=== PATIENT | male | born 1955 | race Caucasian/White ===

== ENCOUNTER 2016-10-20 23:03 | Inpatient (IN) | payer BC ==
[~2016-10-20] VITALS: Ht 182.9 cm; Wt 82.5 kg
[2016-10-21 00:01] LABS: HEMATOCRIT 41.5 % (38.0-50.0); MCH 29.6 PG (29.0-34.0); MCHC 36.1 G/DL (30.0-36.0); MCV 81.9 FL (86-99); MEAN PLAT.VOLUME 8.5 uM^3 (9.0-12.4); PLATELET COUNT 240 K/uL (156-360); RBC DIS.WIDTH-CV 12.2 % (11.8-14.6); RBC DIS.WIDTH-SD 36.4 % (39-53); RED BLOOD COUNT 5.07 M/uL (4.00-5.50); WHITE BLOOD COUNT 8.2 K/uL (4.1-10.2)
[2016-10-21 00:09] LABS: CHLORIDE 88 mEq/L (99-109); POTASSIUM 4.2 mEq/L (3.7-5.4); SODIUM 122 mEq/L (136-147)
[2016-10-21 00:10] LABS: GLUCOSE 100 mg/dL (70-99); PROTHROMBIN TIME 9.8 (9.2-11.2); PTT 31.7 (25-32)
[2016-10-21 00:12] LABS: ANION GAP 10 MEQ/L (2-14)
[2016-10-21 00:14] LABS: GFR ESTIMATE (CALCULATED) > 59 mL/min/
[2016-10-21 00:15] LABS: UREA NITROGEN (BUN) 8 mg/dL (9-23)
[2016-10-21 00:21] LABS: TROP-I INTERPRETATION NEGATIVE; TROPONIN-I < 0.01 ng/mL (0.0-0.30)
[2016-10-21] MEDS ORDERED: TOPROL XL50 MG PO (00:28)
[2016-10-21] MEDS ORDERED: LIPITOR40 MG PO (00:29)
[2016-10-21] MEDS ORDERED: LEXAPRO5 MG PO (00:29)
[2016-10-21] MEDS ORDERED: BUPRENORPHIN-N1 EACH SL (00:31)
[2016-10-21] MEDS ORDERED: SYMBICORT60 INHALAT IH (00:31)
[2016-10-21] MEDS ORDERED: BENADRYL25 MG PO (00:32)
[2016-10-21] MEDS ORDERED: VITAMIN D-32000 UNI2 PO (01:44)
[2016-10-21] MEDS ORDERED: LO-DOSE ASPIRIN81 M2 PO (01:44)
[2016-10-21] MEDS ORDERED: DAILY VALUE1 EACH PO (01:45)
[2016-10-21 02:59] LABS: TOTAL BILIRUBIN 0.6 mg/dL (0.0-1.0)
[2016-10-21 03:00] LABS: ALKALINE PHOSPHATASE 95 IU/L (3-129)
[2016-10-21 03:03] LABS: DIRECT BILIRUBIN 0.3 mg/dL (0.0-0.3)
[2016-10-21 03:04] LABS: URIC ACID 3.1 mg/dL (3.1-9.2)
[2016-10-21 04:04] LABS: HDL CHOLESTEROL 58 MG/DL (Desirable>=40); LDL CHOLESTEROL 63 mg/dL (Desirable<100); NON-HDL CHOLESTEROL 74 mg/dL (Desirable<160); TOTAL CHOLESTEROL 132 mg/dL (Desirable<200); TRIGLYCERIDES 53 MG/DL (Normal: <150)
[2016-10-21 05:16] VITALS: BP 173/84
[2016-10-21 05:22] LABS: ADD MIUA? YES; BILIRUBIN NEGATIVE; BLOOD SMALL; COLOR STRAW ((YELLOW)); GLUCOSE (STRIP) NEGATIVE; KETONES NEGATIVE; LEUKOCYTES NEGATIVE; NITRITE NEGATIVE; PROTEIN (STRIP) NEGATIVE; SPECIFIC GRAVITY 1.017 (1.000-1.030); UROBILINOGEN 0.2 MG/DL (0.2-1.0)
[2016-10-21 06:23] LABS: BACTERIA NONE SEEN /HPF; CASTS NONE SEEN /LPF; CRYSTALS NONE SEEN; EPITHELIAL CELLS NONE SEEN /HPF; MUCUS NONE SEEN /LPF; RED BLOOD CELLS RARE /HPF (0-5); UCUL ADDED? NO; WHITE BLOOD CELLS RARE /HPF (0-5)
[2016-10-21 07:09] LABS: Estimated Average Glucose 114 mg/dL (70-123); HEMOGLOBIN A1c (GLYCOHEMOGLOB) 5.6 % HGB (Below 5.7)
[2016-10-21 07:31] VITALS: BP 162/85
[2016-10-21 09:27] LABS: ANION GAP 7 MEQ/L (2-14); CHLORIDE 87 MEQ/L (99-109); GFR ESTIMATE (CALCULATED) > 59 mL/min/; GLUCOSE 109 mg/dL (70-99); POTASSIUM 4.6 MEQ/L (3.7-5.4); SAMPLE HEMOLYSIS CHECK 0; SAMPLE ICTERIC CHECK 0; SAMPLE LIPEMIA CHECK 0; UREA NITROGEN (BUN) 6 mg/dL (9-23)
[2016-10-21 09:28] LABS: SODIUM 118 MEQ/L (136-147)
[2016-10-21 11:32] VITALS: BP 158/84
[2016-10-21] MEDS ORDERED: LEVO-T50 MCG PO (13:43)
[2016-10-21 15:27] VITALS: BP 162/82
[2016-10-21 16:23] LABS: ANION GAP 8 MEQ/L (2-14); CHLORIDE 85 MEQ/L (99-109); GFR ESTIMATE (CALCULATED) > 59 mL/min/; GLUCOSE 118 mg/dL (70-99); SAMPLE HEMOLYSIS CHECK 0; SAMPLE ICTERIC CHECK 0; SAMPLE LIPEMIA CHECK 0; UREA NITROGEN (BUN) 5 mg/dL (9-23)
[2016-10-21 17:04] LABS: SODIUM 117 MEQ/L (136-147)
[2016-10-21 19:47] VITALS: BP 137/80
[2016-10-21 23:47] VITALS: BP 138/77
[2016-10-21 23:48] LABS: CHLORIDE 87 mEq/L (99-109); POTASSIUM 3.7 mEq/L (3.7-5.4)
[2016-10-21 23:50] LABS: GLUCOSE 102 mg/dL (70-99)
[2016-10-21 23:51] LABS: SODIUM 119 mEq/L (136-147)
[2016-10-21 23:52] LABS: ANION GAP 10 MEQ/L (2-14)
[2016-10-21 23:54] LABS: GFR ESTIMATE (CALCULATED) > 59 mL/min/
[2016-10-21 23:55] LABS: UREA NITROGEN (BUN) 6 mg/dL (9-23)
[2016-10-22 03:51] VITALS: BP 127/74
[2016-10-22 07:29] VITALS: BP 143/78
[2016-10-22 08:44] LABS: BASOPHIL COUNT 0.1 K/uL (0-0.1); EOSINOPHIL (%) 0.7 % (0-5); EOSINOPHIL COUNT 0.1 K/uL (0-0.3); HEMATOCRIT 40.4 % (38.0-50.0); IMMATURE GRANULOCYTE (%) 0.4 % (0.0-0.7); INSTRUMENT ABS NEUTROPHIL CT 6.5 K/uL; LYMPHOCYTE COUNT 0.9 K/uL (1.0-2.8); MCH 29.7 PG (29.0-34.0); MCHC 35.9 G/DL (30.0-36.0); MCV 82.8 FL (86-99); MEAN PLAT.VOLUME 8.4 uM^3 (9.0-12.4); MONOCYTE (%) 10.4 % (3-12); MONOCYTE COUNT 0.9 K/uL (0-0.8); NEUTROPHIL (%) 77.1 % (45-76); NEUTROPHIL COUNT 6.5 K/uL (1.8-6.4); PLATELET COUNT 224 K/uL (156-360); RBC DIS.WIDTH-CV 12.5 % (11.8-14.6); RED BLOOD COUNT 4.88 M/uL (4.00-5.50); WHITE BLOOD COUNT 8.5 K/uL (4.1-10.2)
[2016-10-22 09:09] LABS: ANION GAP 7 MEQ/L (2-14); CHLORIDE 86 MEQ/L (99-109); GFR ESTIMATE (CALCULATED) > 59 mL/min/; GLUCOSE 103 mg/dL (70-99); POTASSIUM 4.3 MEQ/L (3.7-5.4); SAMPLE HEMOLYSIS CHECK 0; SAMPLE ICTERIC CHECK 0; SAMPLE LIPEMIA CHECK 0; SODIUM 120 MEQ/L (136-147); UREA NITROGEN (BUN) 7 mg/dL (9-23)
[2016-10-22 11:19] VITALS: BP 147/74
[2016-10-22 16:00] VITALS: BP 140/80
[2016-10-22 18:52] LABS: ANION GAP 6 MEQ/L (2-14); CHLORIDE 88 MEQ/L (99-109); GFR ESTIMATE (CALCULATED) > 59 mL/min/; GLUCOSE 108 mg/dL (70-99); POTASSIUM 3.9 MEQ/L (3.7-5.4); SAMPLE HEMOLYSIS CHECK 0; SAMPLE ICTERIC CHECK 0; SAMPLE LIPEMIA CHECK 0; SODIUM 121 MEQ/L (136-147); UREA NITROGEN (BUN) 8 mg/dL (9-23)
[2016-10-22 19:44] VITALS: BP 134/77
[2016-10-22 23:29] VITALS: BP 138/78
[2016-10-23 03:47] VITALS: BP 143/81
[2016-10-23 06:47] LABS: ANION GAP 8 MEQ/L (2-14); CHLORIDE 89 MEQ/L (99-109); GFR ESTIMATE (CALCULATED) > 59 mL/min/; GLUCOSE 95 mg/dL (70-99); SAMPLE HEMOLYSIS CHECK 0; SAMPLE ICTERIC CHECK 0; SAMPLE LIPEMIA CHECK 0; SODIUM 123 MEQ/L (136-147); UREA NITROGEN (BUN) 6 mg/dL (9-23)
[2016-10-23 06:51] LABS: POTASSIUM 4.7 MEQ/L (3.7-5.4)
[2016-10-23 07:49] VITALS: BP 160/86
[2016-10-23 11:01] VITALS: BP 138/88
[2016-10-23 15:11] LABS: ANION GAP 7 MEQ/L (2-14); CHLORIDE 91 MEQ/L (99-109); GFR ESTIMATE (CALCULATED) > 59 mL/min/; GLUCOSE 114 mg/dL (70-99); SAMPLE HEMOLYSIS CHECK 0; SAMPLE ICTERIC CHECK 0; SAMPLE LIPEMIA CHECK 0; SODIUM 123 MEQ/L (136-147); UREA NITROGEN (BUN) 8 mg/dL (9-23)
[2016-10-23 16:12] VITALS: BP 130/65
[2016-10-23 19:49] VITALS: BP 113/59
[2016-10-24] VITALS (7 sets, daily range): BP systolic 112–156; BP diastolic 69–85
[2016-10-24 06:50] LABS: BASOPHIL COUNT 0.1 K/uL (0-0.1); EOSINOPHIL (%) 0.8 % (0-5); EOSINOPHIL COUNT 0.1 K/uL (0-0.3); HEMATOCRIT 40.6 % (38.0-50.0); IMMATURE GRANULOCYTE (%) 0.6 % (0.0-0.7); IMMATURE GRANULOCYTE COUNT 0.1 K/uL; INSTRUMENT ABS NEUTROPHIL CT 5.2 K/uL; LYMPHOCYTE COUNT 1.3 K/uL (1.0-2.8); MCH 29.4 PG (29.0-34.0); MCHC 34.7 G/DL (30.0-36.0); MCV 84.8 FL (86-99); MEAN PLAT.VOLUME 8.5 uM^3 (9.0-12.4); MONOCYTE (%) 13.7 % (3-12); MONOCYTE COUNT 1.1 K/uL (0-0.8); NEUTROPHIL (%) 66.1 % (45-76); NEUTROPHIL COUNT 5.2 K/uL (1.8-6.4); PLATELET COUNT 229 K/uL (156-360); RBC DIS.WIDTH-CV 12.9 % (11.8-14.6); RBC DIS.WIDTH-SD 40.1 % (39-53); RED BLOOD COUNT 4.79 M/uL (4.00-5.50); WHITE BLOOD COUNT 7.8 K/uL (4.1-10.2)
[2016-10-24 07:16] LABS: ANION GAP 8 MEQ/L (2-14); CHLORIDE 99 MEQ/L (99-109); GFR ESTIMATE (CALCULATED) > 59 mL/min/; GLUCOSE 93 mg/dL (70-99); POTASSIUM 4.5 MEQ/L (3.7-5.4); SAMPLE HEMOLYSIS CHECK 0; SAMPLE ICTERIC CHECK 0; SAMPLE LIPEMIA CHECK 0; UREA NITROGEN (BUN) 9 mg/dL (9-23)
[2016-10-24 07:18] LABS: SODIUM 134 MEQ/L (136-147)
[2016-10-24 16:38] LABS: ANION GAP 7 MEQ/L (2-14); CHLORIDE 97 MEQ/L (99-109); GFR ESTIMATE (CALCULATED) > 59 mL/min/; GLUCOSE 111 mg/dL (70-99); SAMPLE HEMOLYSIS CHECK 0; SAMPLE ICTERIC CHECK 0; SAMPLE LIPEMIA CHECK 0; SODIUM 133 MEQ/L (136-147); UREA NITROGEN (BUN) 11 mg/dL (9-23)
[2016-10-24 22:42] LABS: ANION GAP 10 MEQ/L (2-14); CHLORIDE 96 MEQ/L (99-109); GFR ESTIMATE (CALCULATED) > 59 mL/min/; GLUCOSE 124 mg/dL (70-99); POTASSIUM 4.3 MEQ/L (3.7-5.4); SAMPLE HEMOLYSIS CHECK 0; SAMPLE ICTERIC CHECK 0; SAMPLE LIPEMIA CHECK 0; SODIUM 130 MEQ/L (136-147); UREA NITROGEN (BUN) 11 mg/dL (9-23)
[2016-10-25 04:00] VITALS: BP 144/76
[2016-10-25 07:04] LABS: IMMATURE GRANULOCYTE (%) 0.3 % (0.0-0.7); LYMPHOCYTE COUNT 1.4 K/uL (1.0-2.8); MCH 29.6 PG (29.0-34.0); MCHC 34.3 G/DL (30.0-36.0); MCV 86.4 FL (86-99); MEAN PLAT.VOLUME 8.7 uM^3 (9.0-12.4); MONOCYTE (%) 12.3 % (3-12); MONOCYTE COUNT 1.1 K/uL (0-0.8); NEUTROPHIL (%) 68.2 % (45-76); PLATELET COUNT 236 K/uL (156-360); RBC DIS.WIDTH-SD 40.6 % (39-53); RED BLOOD COUNT 4.86 M/uL (4.00-5.50); WHITE BLOOD COUNT 8.6 K/uL (4.1-10.2)
[2016-10-25 07:05] LABS: BASOPHIL COUNT 0.1 K/uL (0-0.1); EOSINOPHIL COUNT 0.2 K/uL (0-0.3); INSTRUMENT ABS NEUTROPHIL CT 5.9 K/uL; NEUTROPHIL COUNT 5.9 K/uL (1.8-6.4)
[2016-10-25 07:25] VITALS: BP 152/82
[2016-10-25 08:35] LABS: POTASSIUM 4.6 mEq/L (3.7-5.4); SODIUM 133 mEq/L (136-147)
[2016-10-25 08:36] LABS: CHLORIDE 99 mEq/L (99-109)
[2016-10-25 08:37] LABS: GLUCOSE 97 mg/dL (70-99)
[2016-10-25 08:39] LABS: ANION GAP 12 MEQ/L (2-14)
[2016-10-25 08:41] LABS: GFR ESTIMATE (CALCULATED) > 59 mL/min/
[2016-10-25 08:42] LABS: UREA NITROGEN (BUN) 8 mg/dL (9-23)
[2016-10-25 08:44] VITALS: BP 136/82
[2016-10-25 10:33] VITALS: BP 131/88
[2016-10-25 11:24] VITALS: BP 140/71
[2016-10-25] MEDS ORDERED: CEFTIN500 MG PO (11:36)
[2016-10-25] MEDS ORDERED: SODIUM CHLORIDE1 G1 PO (11:37)
[2016-10-25] MEDS ORDERED: AMLODIPINE BESYL5 MG PO (11:37)
[2016-10-25] MEDS ORDERED: SPIRIVA RESPIMAT4 GM IH (11:38)
[2016-10-25] MEDS ORDERED: PROAIR RESPICL90 MCG IH (11:39)
[2016-10-25] MEDS ORDERED: LORAZEPAM1 MG PO (11:41)
== END 2016-10-25 14:18 | disposition home or self-care (01) | DRG 643 ==
LOC: EME 23:03 → 5SOUTH 10-21 02:06 → EDOF 10-21 02:06 → 5SOUTH 10-21 04:07
PROVIDERS: Emergency Medicine; Hospitalist; Internal Medicine
DX: E22.2 Syndrome of inappropriate secretion of antidiuretic hormone (principal); J18.9 Pneumonia, unspecified organism; C34.91 Malignant neoplasm of unspecified part of right bronchus or lung; J44.0 Chronic obstructive pulmonary disease with (acute) lower respiratory infection; E86.0 Dehydration; I10 Essential (primary) hypertension; J44.1 Chronic obstructive pulmonary disease with (acute) exacerbation; E03.9 Hypothyroidism, unspecified; Z87.891 Personal history of nicotine dependence; E78.5 Hyperlipidemia, unspecified
CPT/HCPCS: 70450; 70551; 71020; 71260; 80048; 80048 91; 80061; 80076; 81003; 82140; 82436; 82533 91; 83036; 83605; 83930; 83935; 84133; 84300; 84443; 84484; 84550; 85002; 85025; 85027; 85610; 85730; 87040; 93005; 93880; 93970; 94060; 94640; 94640 76; 94726; 94729; 99281; 99285; J0574; J1644; J2405; J2597; J7030; J7070

== ENCOUNTER 2017-10-12 11:04 | Inpatient (IN) | payer BC ==
[~2017-10-12] VITALS: Ht 175.3 cm; Wt 88.7 kg
[~2017-10-12 11:04] MED LIST: AMLODIPINE BESYL5 MG PO; BENADRYL25 MG PO; BUPRENORPHIN-N1 EACH SL; CEFTIN500 MG PO; COMPAZINE10 MG PO; DAILY VALUE1 EACH PO; DIAZEPAM5 MG PO; LEVO-T50 MCG PO; LEVOTHYROXINE125 MCG PO; LEXAPRO5 MG PO; LIPITOR40 MG PO; LO-DOSE ASPIRIN81 M2 PO; LORAZEPAM1 MG PO; MIRTAZAPINE15 MG PO; ONDANSETRON HCL8 MG PO; OXYCODONE HCL10 MG PO; PROAIR RESPICL90 MCG IH; SODIUM CHLORIDE1 G1 PO; SPIRIVA RESPIMAT4 GM IH; SYMBICORT60 INHALAT IH; TOPROL XL50 MG PO; VITAMIN D-32000 UNI2 PO
[2017-10-12 11:46] LABS: BASOPHIL COUNT 0.2 K/uL (0-0.1); EOSINOPHIL (%) 1.2 % (0-5); EOSINOPHIL COUNT 0.1 K/uL (0-0.3); HEMATOCRIT 38.2 % (38.0-50.0); HEMOGLOBIN 12.2 G/DL (12.5-16.6); IMMATURE GRANULOCYTE (%) 0.4 % (0.0-0.7); LYMPHOCYTE (%) 16.4 % (15-42); LYMPHOCYTE COUNT 0.9 K/uL (1.0-2.8); MCHC 31.9 G/DL (30.0-36.0); MONOCYTE (%) 9.3 % (3-12); MONOCYTE COUNT 0.5 K/uL (0-0.8); NEUTROPHIL (%) 69.7 % (45-76); NEUTROPHIL COUNT 3.9 K/uL (1.8-6.4); NRBC (%) 0.5 /100 WBC (0-0); PLATELET COUNT 301 K/uL (156-360); RBC DIS.WIDTH-CV 16.1 % (11.8-14.6); RBC DIS.WIDTH-SD 53.7 % (39-53); WHITE BLOOD COUNT 5.6 K/uL (4.1-10.2)
[2017-10-12 12:00] LABS: ALBUMIN 4.1 g/dL (3.2-4.8); CHLORIDE 101 mEq/L (99-109); SODIUM 138 mEq/L (136-147)
[2017-10-12 12:03] LABS: GLUCOSE 124 mg/dL (70-99); TOTAL PROTEIN 6.7 g/dL (6.4-8.3)
[2017-10-12 12:05] LABS: TOTAL BILIRUBIN 0.4 mg/dL (0.0-1.0)
[2017-10-12 12:06] LABS: ALKALINE PHOSPHATASE 166 IU/L (3-129); CREATININE 0.9 mg/dL (0.6-1.3); GFR ESTIMATE (CALCULATED) > 59 mL/min/ (58.99-99999)
[2017-10-12 12:07] LABS: UREA NITROGEN (BUN) 4 mg/dL (9-23)
[2017-10-12 12:08] LABS: AST (GOT) 44 IU/L (2-34)
[2017-10-12 12:08] LABS: TROP-I INTERPRETATION NEGATIVE; TROPONIN-I < 0.01 ng/mL (0.0-0.30)
[2017-10-12 12:09] LABS: ALT (GPT) 42 IU/L (3-49)
[2017-10-12 13:02] LABS: APPEARANCE CLOUDY ((CLEAR)); BILIRUBIN NEGATIVE; BLOOD SMALL; COLOR AMBER ((YELLOW)); GLUCOSE (STRIP) NEGATIVE; KETONES NEGATIVE; LEUKOCYTES TRACE; NITRITE NEGATIVE; PROTEIN (STRIP) 30; SPECIFIC GRAVITY 1.023 (1.000-1.030)
[2017-10-12 13:45] LABS: UCUL ADDED? YES; WHITE BLOOD CELLS TNTC /HPF (0-5)
[2017-10-12] MEDS ORDERED: FUROSEMIDE20 MG PO (14:31)
[2017-10-12 19:24] VITALS: BP 158/81
[2017-10-13] VITALS (7 sets, daily range): BP systolic 115–150; BP diastolic 71–87
[2017-10-13 06:48] LABS: HEMATOCRIT 35.9 % (38.0-50.0); HEMOGLOBIN 11.5 G/DL (12.5-16.6); MCH 28.4 PG (29.0-34.0); MCV 88.6 FL (86-99); PLATELET COUNT 316 K/uL (156-360); RBC DIS.WIDTH-CV 16.2 % (11.8-14.6); RBC DIS.WIDTH-SD 52.9 % (39-53); RED BLOOD COUNT 4.05 M/uL (4.00-5.50); WHITE BLOOD COUNT 9.2 K/uL (4.1-10.2)
[2017-10-13 07:12] LABS: CHLORIDE 104 MEQ/L (99-109); CREATININE 0.8 MG/DL (0.6-1.3); GFR ESTIMATE (CALCULATED) > 59 mL/min/ (58.99-99999); GLUCOSE 116 mg/dL (70-99); POTASSIUM 3.9 MEQ/L (3.7-5.4); SODIUM 137 MEQ/L (136-147); UREA NITROGEN (BUN) 6 mg/dL (9-23)
[2017-10-14 04:41] VITALS: BP 126/70
[2017-10-14 07:19] VITALS: BP 146/77
[2017-10-14 10:41] LABS: CREATININE 0.8 MG/DL (0.6-1.3); GFR ESTIMATE (CALCULATED) > 59 mL/min/ (58.99-99999)
[2017-10-14 11:25] VITALS: BP 143/77
[2017-10-14 15:30] VITALS: BP 154/81
[2017-10-14 19:23] VITALS: BP 127/75
[2017-10-14 22:50] VITALS: BP 144/85
[2017-10-15 03:29] VITALS: BP 127/73
[2017-10-15 07:35] VITALS: BP 104/57
[2017-10-15 10:01] LABS: C DIFF TOXIN NEGATIVE (NEGATIVE)
[2017-10-15] MEDS ORDERED: FLORASTOR250 MG PO (11:02)
[2017-10-15] MEDS ORDERED: LEVAQUIN750 MG PO (11:02)
[2017-10-15] MEDS ORDERED: LOPERAMIDE2 MG PO (11:02)
[2017-10-15] MEDS ORDERED: LORAZEPAM0.5 MG PO (11:02)
[2017-10-15 12:01] VITALS: BP 112/60
== END 2017-10-15 14:03 | disposition home or self-care (01) | DRG 194 ==
LOC: EME 11:04 → ENRESERV 15:25 → EDOF 15:25 → 5EAST 15:25
PROVIDERS: Emergency Medicine; Internal Medicine; Physician Assistant; Surgery
DX: J18.9 Pneumonia, unspecified organism (principal); R41.0 Disorientation, unspecified; T40.2X5A Adverse effect of other opioids, initial encounter; T42.4X5A Adverse effect of benzodiazepines, initial encounter; R19.7 Diarrhea, unspecified; R47.01 Aphasia; C79.51 Secondary malignant neoplasm of bone; J44.9 Chronic obstructive pulmonary disease, unspecified; R09.02 Hypoxemia; I10 Essential (primary) hypertension; E03.9 Hypothyroidism, unspecified; F41.9 Anxiety disorder, unspecified; F32.9 Major depressive disorder, single episode, unspecified; R21 Rash and other nonspecific skin eruption; G89.29 Other chronic pain; M54.5 Low back pain; Y95 Nosocomial condition; Z85.118 Personal history of other malignant neoplasm of bronchus and lung; Z87.891 Personal history of nicotine dependence; Z79.51 Long term (current) use of inhaled steroids; Z82.3 Family history of stroke
CPT/HCPCS: 70450; 71046; 80048; 80053; 81003; 82140; 82565; 83605; 83930; 84300; 84484; 85025; 85027; 87040; 87070; 87086; 87205; 87449; 87493; 87502; 87641; 93005; 94760; 94799; 99202; 99281; 99284; J0360; J0456; J0696; J1650; J2060; J2543; J3370; J7030; J7050

== ENCOUNTER 2017-11-01 16:49 | Inpatient (IN) | payer BC ==
[~2017-11-01] VITALS: Ht 182.9 cm; Wt 81.8 kg
[~2017-11-01 16:49] MED LIST changes: +FLORASTOR250 MG PO; +FUROSEMIDE20 MG PO; +LEVAQUIN750 MG PO; +LOPERAMIDE2 MG PO; +LORAZEPAM0.5 MG PO
[2017-11-01 17:35] LABS: HEMATOCRIT 37.1 % (38.0-50.0); HEMOGLOBIN 13.1 G/DL (12.5-16.6); MCHC 35.3 G/DL (30.0-36.0); RBC DIS.WIDTH-CV 14.6 % (11.8-14.6); RBC DIS.WIDTH-SD 43.5 % (39-53); RED BLOOD COUNT 4.52 M/uL (4.00-5.50); WHITE BLOOD COUNT 3.2 K/uL (4.1-10.2)
[2017-11-01 17:53] LABS: MCV 82.1 FL (86-99)
[2017-11-01 17:59] LABS: TROP-I INTERPRETATION NEGATIVE; TROPONIN-I < 0.01 ng/mL (0.0-0.30)
[2017-11-01 18:03] LABS: CHLORIDE 88 MEQ/L (99-109); CREATININE 0.7 MG/DL (0.6-1.3); GFR ESTIMATE (CALCULATED) > 59 mL/min/ (58.99-99999); GLUCOSE 169 mg/dL (70-99); POTASSIUM 3.8 MEQ/L (3.7-5.4); UREA NITROGEN (BUN) 6 mg/dL (9-23)
[2017-11-01 18:04] LABS: SODIUM 123 MEQ/L (136-147)
[2017-11-01 18:17] LABS: IMM.PLATELET FRACTION 5.7 (1-7); PLAT.SUFFICIENCY VERY DECREASED
[2017-11-01 18:26] LABS: PLATELET COUNT 31 K/uL (156-360)
[2017-11-01] MEDS ORDERED: FLORASTOR250 MG PO (19:31)
[2017-11-01] MEDS ORDERED: DIAZEPAM5 MG PO (19:34)
[2017-11-01 19:47] LABS: ALBUMIN 4.5 G/DL (3.2-4.8); AST (GOT) 17 IU/L (2-34); DIRECT BILIRUBIN 0.2 mg/dL (0.0-0.3); MAGNESIUM 1.7 mg/dl (1.3-2.7); PHOSPHORUS 3.2 mg/dL (2.5-4.9)
[2017-11-01 19:48] LABS: ALKALINE PHOSPHATASE 161 IU/L (3-129); ALT (GPT) 24 IU/L (3-49); TOTAL PROTEIN 7.2 G/DL (6.4-8.3)
[2017-11-01 20:08] LABS: ABS NEUTROPHIL COUNT 2.5; ANISOCYTOSIS 1+; ATYPICAL LYMPHOCYTE 0.9 %; BAND NEUTROPHILS 4.3 % (0-8.0); BASOPHILS 1.7 %; EOSINOPHIL ABS CT 0; LYMPHOCYTES 15.7 % (15.0-45.0); MONOCYTES 4.4 % (0-9.0); POIKILOCYTOSIS 1+
[2017-11-01 20:52] VITALS: BP 155/60
[2017-11-01 22:34] VITALS: BP 147/76
[2017-11-02 03:41] VITALS: BP 144/82
[2017-11-02 06:52] LABS: HEMATOCRIT 35.6 % (38.0-50.0); HEMOGLOBIN 11.8 G/DL (12.5-16.6); MCH 27.6 PG (29.0-34.0); MCHC 33.1 G/DL (30.0-36.0); MCV 83.4 FL (86-99); RBC DIS.WIDTH-CV 14.8 % (11.8-14.6); RBC DIS.WIDTH-SD 45.3 % (39-53); RED BLOOD COUNT 4.27 M/uL (4.00-5.50); WHITE BLOOD COUNT 3.1 K/uL (4.1-10.2)
[2017-11-02 07:00] LABS: CHLORIDE 95 MEQ/L (99-109); CREATININE 0.7 MG/DL (0.6-1.3); GFR ESTIMATE (CALCULATED) > 59 mL/min/ (58.99-99999); POTASSIUM 4.5 MEQ/L (3.7-5.4); UREA NITROGEN (BUN) 5 mg/dL (9-23)
[2017-11-02 07:10] LABS: GLUCOSE 109 mg/dL (70-99); SODIUM 133 MEQ/L (136-147)
[2017-11-02 07:20] VITALS: BP 122/64
[2017-11-02 07:38] LABS: TROP-I INTERPRETATION NEGATIVE; TROPONIN-I < 0.01 ng/mL (0.0-0.30)
[2017-11-02 07:50] LABS: IMM.PLATELET FRACTION 4.2 (1-7); PLAT.SUFFICIENCY DECREASED; PLATELET COUNT 32 K/uL (156-360)
[2017-11-02 10:42] LABS: APPEARANCE CLEAR ((CLEAR)); BILIRUBIN NEGATIVE; BLOOD MODERATE; COLOR YELLOW ((YELLOW)); GLUCOSE (STRIP) NEGATIVE; KETONES NEGATIVE; LEUKOCYTES NEGATIVE; NITRITE NEGATIVE; PROTEIN (STRIP) NEGATIVE; SPECIFIC GRAVITY 1.011 (1.000-1.030); UROBILINOGEN 0.2 MG/DL (0.2-1.0)
[2017-11-02 10:47] LABS: BACTERIA NONE SEEN /HPF; EPITHELIAL CELLS NONE SEEN /HPF; MUCUS NONE SEEN /LPF; UCUL ADDED? NO; WHITE BLOOD CELLS 0-5 /HPF (0-5)
[2017-11-02 10:54] LABS: THYROTROPIN (TSH) 6.1 MIU/L (0.4-5.5)
[2017-11-02 11:41] VITALS: BP 142/74
[2017-11-02 13:21] LABS: URIC ACID 3.5 mg/dL (3.1-9.2)
[2017-11-02 16:15] VITALS: BP 148/70
[2017-11-03] VITALS: BP 131/69
[2017-11-03 07:12] LABS: HEMATOCRIT 36.4 % (38.0-50.0); HEMOGLOBIN 12.2 G/DL (12.5-16.6); MCH 27.6 PG (29.0-34.0); MCHC 33.5 G/DL (30.0-36.0); MCV 82.4 FL (86-99); RBC DIS.WIDTH-CV 14.8 % (11.8-14.6); RED BLOOD COUNT 4.42 M/uL (4.00-5.50); WHITE BLOOD COUNT 7.9 K/uL (4.1-10.2)
[2017-11-03 07:22] LABS: CHLORIDE 94 MEQ/L (99-109); CREATININE 0.8 MG/DL (0.6-1.3); GFR ESTIMATE (CALCULATED) > 59 mL/min/ (58.99-99999); GLUCOSE 99 mg/dL (70-99); POTASSIUM 3.9 MEQ/L (3.7-5.4); SODIUM 133 MEQ/L (136-147); UREA NITROGEN (BUN) 6 mg/dL (9-23)
[2017-11-03 07:39] LABS: ABS NEUTROPHIL COUNT 5.1; ATYPICAL LYMPHOCYTE 3.5 %; BAND NEUTROPHILS 9.6 % (0-8.0); EOSINOPHIL ABS CT 0.1; EOSINOPHILS 1.7 % (0-5.0); IMM.PLATELET FRACTION 5.7 (1-7); LYMPHOCYTES 21.7 % (15.0-45.0); MICROCYTOSIS 1+; MONOCYTES 8.7 % (0-9.0); PLAT.SUFFICIENCY VERY DECREASED; POIKILOCYTOSIS 1+; SEG.NEUTROPHILS 54.8 % (46.0-76.0)
[2017-11-03 07:42] VITALS: BP 123/62
[2017-11-03 07:50] LABS: PLATELET COUNT 28 K/uL (156-360)
[2017-11-03 10:26] LABS: HEMOGLOBIN A1c (GLYCOHEMOGLOB) 5.4 % (Below 5.7)
[2017-11-03 16:00] VITALS: BP 109/55
[2017-11-04] VITALS: BP 128/82
[2017-11-04 06:43] LABS: CHLORIDE 95 MEQ/L (99-109); CREATININE 0.8 MG/DL (0.6-1.3); GFR ESTIMATE (CALCULATED) > 59 mL/min/ (58.99-99999); GLUCOSE 116 mg/dL (70-99); POTASSIUM 4.3 MEQ/L (3.7-5.4); SODIUM 132 MEQ/L (136-147); UREA NITROGEN (BUN) 9 mg/dL (9-23)
[2017-11-04 07:14] VITALS: BP 116/64
[2017-11-04 16:50] VITALS: BP 157/72
[2017-11-04 23:56] VITALS: BP 111/68
[2017-11-05 06:18] LABS: CHLORIDE 95 MEQ/L (99-109); CREATININE 0.8 MG/DL (0.6-1.3); GFR ESTIMATE (CALCULATED) > 59 mL/min/ (58.99-99999); GLUCOSE 143 mg/dL (70-99); POTASSIUM 4.3 MEQ/L (3.7-5.4); SODIUM 134 MEQ/L (136-147); UREA NITROGEN (BUN) 13 mg/dL (9-23)
[2017-11-05 07:35] VITALS: BP 134/78
[2017-11-05 08:30] LABS: HEMATOCRIT 37.2 % (38.0-50.0); HEMOGLOBIN 12.5 G/DL (12.5-16.6); MCH 28.4 PG (29.0-34.0); MCHC 33.6 G/DL (30.0-36.0); MCV 84.5 FL (86-99); NRBC (%) 0.1 /100 WBC (0-0); RBC DIS.WIDTH-CV 15.4 % (11.8-14.6); RBC DIS.WIDTH-SD 47.4 % (39-53); WHITE BLOOD COUNT 22.2 K/uL (4.1-10.2)
[2017-11-05 08:32] LABS: PLATELET COUNT 76 K/uL (156-360)
[2017-11-05] MEDS ORDERED: SODIUM CHLORIDE1 G1 PO (13:38)
[2017-11-05] MEDS ORDERED: FUROSEMIDE20 MG PO (13:38)
[2017-11-05] MEDS ORDERED: DECADRON2 MG PO (13:42)
[2017-11-05 16:24] VITALS: BP 142/74
== END 2017-11-05 16:26 | disposition home or self-care (01) | DRG 871 ==
LOC: EME 16:49 → EDOF 19:18 → 5EAST 19:18 → ENRESERV 19:25 → 5EAST 20:42
PROVIDERS: Hospitalist; Internal Medicine; Internal Medicine Nephrology; Nurse Practitioner Adult Health; Physician Assistant Medical
DX: A41.9 Sepsis, unspecified organism (principal); J18.9 Pneumonia, unspecified organism; J96.01 Acute respiratory failure with hypoxia; E22.2 Syndrome of inappropriate secretion of antidiuretic hormone; C79.31 Secondary malignant neoplasm of brain; D61.810 Antineoplastic chemotherapy induced pancytopenia; J44.1 Chronic obstructive pulmonary disease with (acute) exacerbation; J44.0 Chronic obstructive pulmonary disease with (acute) lower respiratory infection; C34.91 Malignant neoplasm of unspecified part of right bronchus or lung; J98.11 Atelectasis; I11.9 Hypertensive heart disease without heart failure; T45.1X5A Adverse effect of antineoplastic and immunosuppressive drugs, initial encounter; C78.7 Secondary malignant neoplasm of liver and intrahepatic bile duct; C79.51 Secondary malignant neoplasm of bone; F41.9 Anxiety disorder, unspecified; F32.9 Major depressive disorder, single episode, unspecified; E03.9 Hypothyroidism, unspecified; G89.29 Other chronic pain; D69.59 Other secondary thrombocytopenia; R73.9 Hyperglycemia, unspecified; R27.0 Ataxia, unspecified; Z79.51 Long term (current) use of inhaled steroids; Z72.0 Tobacco use; Z87.01 Personal history of pneumonia (recurrent); Z85.118 Personal history of other malignant neoplasm of bronchus and lung; Z82.3 Family history of stroke
CPT/HCPCS: 70553; 71046; 71275; 77307; 77331; 77334; 77412; 77417; 80048; 80076; 81003; 82948; 83036; 83615; 83735; 83935; 84100; 84145 90; 84300; 84439; 84443; 84481; 84484; 84550; 85025; 85027; 87040; 93005; 94010; 94640; 94640 76; 94760; 94799; 97530 GO; 99202; 99281; 99285; J0692; J1100; J1815; J1956; J2405; J7030

== ENCOUNTER 2017-11-18 13:13 | Inpatient (IN) | payer BC ==
[~2017-11-18] VITALS: Ht 182.9 cm; Wt 80.8 kg
[~2017-11-18 13:13] MED LIST changes: +DECADRON2 MG PO
[2017-11-18 14:59] LABS: HEMATOCRIT 46.8 % (38.0-50.0); HEMOGLOBIN 15.6 G/DL (12.5-16.6); MCH 29.1 PG (29.0-34.0); MCHC 33.3 G/DL (30.0-36.0); MCV 87.3 FL (86-99); PLATELET COUNT 265 K/uL (156-360); RBC DIS.WIDTH-CV 17.1 % (11.8-14.6); RBC DIS.WIDTH-SD 54.2 % (39-53); RED BLOOD COUNT 5.36 M/uL (4.00-5.50)
[2017-11-18 15:04] LABS: CHLORIDE 100 mEq/L (99-109); POTASSIUM 4.3 mEq/L (3.7-5.4); SODIUM 140 mEq/L (136-147)
[2017-11-18 15:06] LABS: GLUCOSE 116 mg/dL (70-99)
[2017-11-18 15:10] LABS: CREATININE 0.8 mg/dL (0.6-1.3); GFR ESTIMATE (CALCULATED) > 59 mL/min/ (58.99-99999)
[2017-11-18 15:11] LABS: UREA NITROGEN (BUN) 9 mg/dL (9-23)
[2017-11-18 15:17] LABS: TROP-I INTERPRETATION NEGATIVE; TROPONIN-I 0.01 ng/mL (0.0-0.30)
[2017-11-18 15:58] LABS: APPEARANCE CLEAR ((CLEAR)); BILIRUBIN NEGATIVE; BLOOD SMALL; COLOR YELLOW ((YELLOW)); GLUCOSE (STRIP) NEGATIVE; KETONES NEGATIVE; LEUKOCYTES NEGATIVE; NITRITE NEGATIVE; PROTEIN (STRIP) 30; SPECIFIC GRAVITY 1.021 (1.000-1.030); UROBILINOGEN 0.2 MG/DL (0.2-1.0)
[2017-11-18 15:59] LABS: BACTERIA NONE SEEN /HPF; EPITHELIAL CELLS NONE SEEN /HPF; MUCUS TRACE /LPF; RED BLOOD CELLS 0-5 /HPF (0-5); WHITE BLOOD CELLS 0-5 /HPF (0-5)
[2017-11-18] MEDS ORDERED: FUROSEMIDE20 MG PO (16:18)
[2017-11-18 19:40] VITALS: BP 144/92
[2017-11-18 21:00] VITALS: BP 144/92
[2017-11-18 23:15] VITALS: BP 166/87
[2017-11-19 03:36] VITALS: BP 142/92
[2017-11-19 06:01] LABS: HEMATOCRIT 44.6 % (38.0-50.0); HEMOGLOBIN 14.2 G/DL (12.5-16.6); MCHC 31.8 G/DL (30.0-36.0); MCV 87.8 FL (86-99); PLATELET COUNT 225 K/uL (156-360); RBC DIS.WIDTH-CV 17.2 % (11.8-14.6); RED BLOOD COUNT 5.08 M/uL (4.00-5.50)
[2017-11-19 06:26] LABS: ALBUMIN 3.8 G/DL (3.2-4.8); ALKALINE PHOSPHATASE 86 IU/L (3-129); ALT (GPT) 36 IU/L (3-49); AST (GOT) 24 IU/L (2-34); CHLORIDE 103 MEQ/L (99-109); CREATININE 0.7 MG/DL (0.6-1.3); CREATININE 0.8 MG/DL (0.6-1.3); GFR ESTIMATE (CALCULATED) > 59 mL/min/ (58.99-99999); GLUCOSE 107 mg/dL (70-99); POTASSIUM 4.1 MEQ/L (3.7-5.4); POTASSIUM 4.2 MEQ/L (3.7-5.4); SODIUM 139 MEQ/L (136-147); TOTAL BILIRUBIN 0.7 MG/DL (0.0-1.0); TOTAL PROTEIN 6.4 G/DL (6.4-8.3); UREA NITROGEN (BUN) 8 mg/dL (9-23)
[2017-11-19 07:36] VITALS: BP 149/98
[2017-11-19 11:42] VITALS: BP 137/81
[2017-11-19 15:28] VITALS: BP 128/86
[2017-11-19 20:24] VITALS: BP 157/87
[2017-11-19 23:57] VITALS: BP 167/93
[2017-11-20 04:24] VITALS: BP 131/88
[2017-11-20 06:08] LABS: HEMATOCRIT 42.3 % (38.0-50.0); HEMOGLOBIN 13.6 G/DL (12.5-16.6); MCH 27.9 PG (29.0-34.0); MCHC 32.2 G/DL (30.0-36.0); MCV 86.7 FL (86-99); PLATELET COUNT 202 K/uL (156-360); RBC DIS.WIDTH-CV 16.8 % (11.8-14.6); RBC DIS.WIDTH-SD 53.6 % (39-53); RED BLOOD COUNT 4.88 M/uL (4.00-5.50); WHITE BLOOD COUNT 12.1 K/uL (4.1-10.2)
[2017-11-20 06:32] LABS: CHLORIDE 101 MEQ/L (99-109); CREATININE 0.7 MG/DL (0.6-1.3); GFR ESTIMATE (CALCULATED) > 59 mL/min/ (58.99-99999); GLUCOSE 113 mg/dL (70-99); POTASSIUM 3.8 MEQ/L (3.7-5.4); SODIUM 136 MEQ/L (136-147); UREA NITROGEN (BUN) 7 mg/dL (9-23)
[2017-11-20 08:07] VITALS: BP 161/86
[2017-11-20 12:14] VITALS: BP 158/79
[2017-11-20 16:27] VITALS: BP 132/82
[2017-11-20 20:07] VITALS: BP 170/89
[2017-11-20 23:27] VITALS: BP 121/57
[2017-11-21 04:47] VITALS: BP 164/96
[2017-11-21 05:46] LABS: HEMATOCRIT 41.9 % (38.0-50.0); HEMOGLOBIN 13.9 G/DL (12.5-16.6); MCH 28.6 PG (29.0-34.0); MCHC 33.2 G/DL (30.0-36.0); MCV 86.2 FL (86-99); PLATELET COUNT 190 K/uL (156-360); RBC DIS.WIDTH-CV 16.9 % (11.8-14.6); RBC DIS.WIDTH-SD 53.5 % (39-53); RED BLOOD COUNT 4.86 M/uL (4.00-5.50); WHITE BLOOD COUNT 11.5 K/uL (4.1-10.2)
[2017-11-21 06:11] LABS: CHLORIDE 98 MEQ/L (99-109); CREATININE 0.7 MG/DL (0.6-1.3); GFR ESTIMATE (CALCULATED) > 59 mL/min/ (58.99-99999); GLUCOSE 111 mg/dL (70-99); POTASSIUM 3.8 MEQ/L (3.7-5.4); SODIUM 132 MEQ/L (136-147); UREA NITROGEN (BUN) 6 mg/dL (9-23)
[2017-11-21 07:57] VITALS: BP 162/96
[2017-11-21 12:33] VITALS: BP 157/96
[2017-11-21 15:44] VITALS: BP 162/110
[2017-11-21 19:15] VITALS: BP 158/88
[2017-11-21 23:27] VITALS: BP 157/84
[2017-11-22 03:15] VITALS: BP 146/90
[2017-11-22 05:32] LABS: HEMATOCRIT 44.2 % (38.0-50.0); HEMOGLOBIN 14.7 G/DL (12.5-16.6); MCH 27.9 PG (29.0-34.0); MCHC 33.3 G/DL (30.0-36.0); MCV 83.9 FL (86-99); PLATELET COUNT 210 K/uL (156-360); RBC DIS.WIDTH-CV 16.6 % (11.8-14.6); RBC DIS.WIDTH-SD 51.3 % (39-53); RED BLOOD COUNT 5.27 M/uL (4.00-5.50); WHITE BLOOD COUNT 9.5 K/uL (4.1-10.2)
[2017-11-22 05:56] LABS: CHLORIDE 95 MEQ/L (99-109); CREATININE 0.7 MG/DL (0.6-1.3); GFR ESTIMATE (CALCULATED) > 59 mL/min/ (58.99-99999); GLUCOSE 129 mg/dL (70-99); POTASSIUM 4.1 MEQ/L (3.7-5.4); SODIUM 131 MEQ/L (136-147); UREA NITROGEN (BUN) 8 mg/dL (9-23)
[2017-11-22 08:01] VITALS: BP 162/101
[2017-11-22 12:43] VITALS: BP 137/79
[2017-11-22 15:58] VITALS: BP 147/89
[2017-11-22 19:52] VITALS: BP 151/92
[2017-11-22 23:41] VITALS: BP 172/96
[2017-11-23 02:00] VITALS: BP 150/90
[2017-11-23 08:18] VITALS: BP 145/75
[2017-11-23 08:34] LABS: CHLORIDE 96 MEQ/L (99-109); CREATININE 0.7 MG/DL (0.6-1.3); GFR ESTIMATE (CALCULATED) > 59 mL/min/ (58.99-99999); GLUCOSE 97 mg/dL (70-99); POTASSIUM 3.8 MEQ/L (3.7-5.4); SODIUM 130 MEQ/L (136-147); UREA NITROGEN (BUN) 14 mg/dL (9-23)
[2017-11-23 11:27] VITALS: BP 152/95
[2017-11-23 20:30] VITALS: BP 149/84
[2017-11-24 00:03] VITALS: BP 164/94
[2017-11-24 06:34] LABS: CHLORIDE 92 MEQ/L (99-109); CREATININE 0.7 MG/DL (0.6-1.3); GFR ESTIMATE (CALCULATED) > 59 mL/min/ (58.99-99999); GLUCOSE 93 mg/dL (70-99); POTASSIUM 3.8 MEQ/L (3.7-5.4); SODIUM 129 MEQ/L (136-147); UREA NITROGEN (BUN) 11 mg/dL (9-23)
[2017-11-24 08:49] VITALS: BP 156/90
[2017-11-24 12:14] VITALS: BP 148/72
[2017-11-24 15:43] VITALS: BP 172/81
[2017-11-25] VITALS: BP 146/90
[2017-11-25 07:02] LABS: CHLORIDE 92 MEQ/L (99-109); CREATININE 0.8 MG/DL (0.6-1.3); GFR ESTIMATE (CALCULATED) > 59 mL/min/ (58.99-99999); GLUCOSE 102 mg/dL (70-99); POTASSIUM 4.1 MEQ/L (3.7-5.4); SODIUM 130 MEQ/L (136-147); UREA NITROGEN (BUN) 11 mg/dL (9-23)
[2017-11-25 08:30] VITALS: BP 130/80
[2017-11-25 16:30] VITALS: BP 140/80
[2017-11-25 19:45] VITALS: BP 138/59
[2017-11-25 23:44] VITALS: BP 167/89
[2017-11-26 07:06] LABS: CHLORIDE 93 MEQ/L (99-109); CREATININE 0.7 MG/DL (0.6-1.3); GFR ESTIMATE (CALCULATED) > 59 mL/min/ (58.99-99999); GLUCOSE 110 mg/dL (70-99); POTASSIUM 4.4 MEQ/L (3.7-5.4); SODIUM 130 MEQ/L (136-147); UREA NITROGEN (BUN) 13 mg/dL (9-23)
[2017-11-26 08:20] VITALS: BP 158/79
[2017-11-26 12:16] VITALS: BP 118/87
[2017-11-26 15:47] VITALS: BP 147/84
[2017-11-26 23:46] VITALS: BP 140/76
[2017-11-27 06:00] LABS: BASOPHIL (%) 0.9 % (0-1); BASOPHIL COUNT 0.1 K/uL (0-0.1); EOSINOPHIL (%) 0.6 % (0-5); EOSINOPHIL COUNT 0.1 K/uL (0-0.3); HEMATOCRIT 48.5 % (38.0-50.0); HEMOGLOBIN 16.3 G/DL (12.5-16.6); IMMATURE GRANULOCYTE (%) 0.7 % (0.0-0.7); LYMPHOCYTE (%) 7.8 % (15-42); LYMPHOCYTE COUNT 1.2 K/uL (1.0-2.8); MCH 28.5 PG (29.0-34.0); MCHC 33.6 G/DL (30.0-36.0); MCV 84.9 FL (86-99); MONOCYTE (%) 7.8 % (3-12); MONOCYTE COUNT 1.2 K/uL (0-0.8); NEUTROPHIL (%) 82.2 % (45-76); NEUTROPHIL COUNT 12.2 K/uL (1.8-6.4); PLATELET COUNT 201 K/uL (156-360); RBC DIS.WIDTH-CV 18.2 % (11.8-14.6); RBC DIS.WIDTH-SD 54.5 % (39-53); RED BLOOD COUNT 5.71 M/uL (4.00-5.50); WHITE BLOOD COUNT 14.8 K/uL (4.1-10.2)
[2017-11-27 06:24] LABS: CHLORIDE 96 MEQ/L (99-109); CREATININE 0.7 MG/DL (0.6-1.3); GFR ESTIMATE (CALCULATED) > 59 mL/min/ (58.99-99999); GLUCOSE 113 mg/dL (70-99); POTASSIUM 4.5 MEQ/L (3.7-5.4); SODIUM 134 MEQ/L (136-147); UREA NITROGEN (BUN) 17 mg/dL (9-23)
[2017-11-27 08:02] VITALS: BP 128/85
[2017-11-27] MEDS ORDERED: METOPROLOL SUC100 MG PO (08:37)
[2017-11-27] MEDS ORDERED: SODIUM CHLORIDE1 G1 PO (08:38)
[2017-11-27] MEDS ORDERED: AMLODIPINE BESYL5 MG PO (08:38)
[2017-11-27] MEDS ORDERED: DIVALPROEX SOD125 MG PO (08:38)
[2017-11-27] MEDS ORDERED: HYDROCORTISONE30 G2 PR (08:39)
[2017-11-27] MEDS ORDERED: FUROSEMIDE20 MG PO (08:39)
[2017-11-27] MEDS ORDERED: LOVENOX40 MG/0.4 SC (08:39)
[2017-11-27] MEDS ORDERED: ALPRAZOLAM0.5 MG PO (08:39)
== END 2017-11-27 13:12 | DRG 54 ==
LOC: EME 13:13 → 3EAST 16:14 → EDOF 16:14 → ENRESERV 16:16 → 3EAST 19:23
PROVIDERS: Emergency Medicine; Hospitalist; Internal Medicine; Physician Assistant; Physician Assistant Medical
DX: C79.31 Secondary malignant neoplasm of brain (principal); G93.40 Encephalopathy, unspecified; F05 Delirium due to known physiological condition; J15.9 Unspecified bacterial pneumonia; Y95 Nosocomial condition; E22.2 Syndrome of inappropriate secretion of antidiuretic hormone; E86.0 Dehydration; G25.3 Myoclonus; R47.01 Aphasia; C79.51 Secondary malignant neoplasm of bone; C34.90 Malignant neoplasm of unspecified part of unspecified bronchus or lung; J44.0 Chronic obstructive pulmonary disease with (acute) lower respiratory infection; I10 Essential (primary) hypertension; E03.9 Hypothyroidism, unspecified; G47.33 Obstructive sleep apnea (adult) (pediatric); G89.29 Other chronic pain; M54.5 Low back pain; F41.9 Anxiety disorder, unspecified; F32.9 Major depressive disorder, single episode, unspecified; Z66 Do not resuscitate; Z79.891 Long term (current) use of opiate analgesic; Z87.891 Personal history of nicotine dependence
CPT/HCPCS: 36415; 70450; 70553; 71045; 71046; 74176; 77336; 80048; 80053; 80202; 81003; 83605; 84484; 85025; 85027; 87040; 87086; 87493; 94799; 95819; 97530 GP; 99202; 99281; 99285; J1650; J2060; J2543; J3370; J7030; J7050; J8540